=== PATIENT | female | born 1950 | race Asian ===

== ENCOUNTER 2018-01-22 17:58 | Emergency (ER) | payer MEDICARE ==
[~2018-01-22] VITALS: Ht 160 cm; Wt 76.7 kg
[~2018-01-22 17:58] MED LIST: ALPR.5; ALPR.5 PO; ALPR1; AMOX250 PO; LISI20 PO; LISI5 PO; OLME40 PO; OXYACE5T PO; OXYC5 PO; POTCHL10ER; POTCHL10ER PO; TRAM50
[2018-01-22 19:21] LABS: BASOPHILS ABSOLUTE AUTO 0.02 K/mm3 (0.00-0.23); BASOPHILS PERCENT AUTO 0 % (0-2); EOSINOPHILS ABSOLUTE AUTO 0.03 K/mm3 (0.00-0.68); EOSINOPHILS PERCENT AUTO 0 % (0-6); Hematocrit 38.7 % (33.0-51.0); Hemoglobin 13.6 g/dL (11.5-16.0); IMMATURE GRAN ABSOLUTE AUTO 0.02 K/mm3 (0.00-0.10); IMMATURE GRAN PERCENT AUTO 0 % (0-1); LYMPHOCYTES ABSOLUTE AUTO 1.69 K/mm3 (0.84-5.20); LYMPHOCYTES PERCENT AUTO 22 % (21-46); MONOCYTES ABSOLUTE AUTO 0.78 K/mm3 (0.16-1.47); MONOCYTES PERCENT AUTO 10 % (4-13); Mean Corpuscular HGB 35.1 pg (26.0-34.0); Mean Corpuscular HGB Conc 35.1 g/dL (31.5-36.5); Mean Corpuscular Volume 100 fL (80-100); Mean Platelet Volume 11.5 fL (9.1-12.4); NEUTROPHILS ABSOLUTE AUTO 5.09 K/mm3 (1.96-9.15); NEUTROPHILS PERCENT AUTO 67 % (41-73); Platelet Count 97 K/mm3 (150-400); RDW Standard Deviation 43.7 fL (35.1-46.3); Red Blood Cell Count 3.87 M/mm3 (3.80-5.20); White Blood Cell Count 7.63 K/mm3 (4.00-11.30)
[2018-01-22 19:24] LABS: Alanine Aminotransfer (ALT/SGP 402 U/L (12-78); Albumin, Blood 2.6 g/dL (3.4-5.0); Albumin/Globulin Ratio 0.5 (0.8-1.8); Alk Phos 107 U/L (50-136); Anion Gap 9 mmol/L (6-16); Aspartate Aminotrans (AST/SGOT 323 U/L (12-37); Bilirubin, Total 1.9 mg/dL (0.1-1.0); Blood Urea Nitrogen 12 mg/dL (8-24); Bun/Creatinine Ratio 24.3 (12.0-20.0); CO2, Blood 23 mmol/L (21-32); Chloride, Blood 103 mmol/L (98-108); Creatinine, Blood 0.49 mg/dL (0.40-1.00); Globulin, Blood 4.8 g/dL (2.2-4.0); Glomerular Filtration Rate >60 (60-); Glucose, Blood 158 mg/dL (70-99); Potassium, Blood 3.6 mmol/L (3.5-5.5); Sodium, Blood 135 mmol/L (136-145); Total Protein, Blood 7.4 g/dL (6.4-8.2); Troponin I <0.015 ng/mL (0.000-0.040)
== END 2018-01-22 20:33 | disposition home or self-care (01) ==
LOC: ER 17:58
PROVIDERS: Emergency Medicine
DX: R07.89 Other chest pain (principal); F41.9 Anxiety disorder, unspecified; R79.89 Other specified abnormal findings of blood chemistry; F17.210 Nicotine dependence, cigarettes, uncomplicated; Z88.5 Allergy status to narcotic agent; Z88.6 Allergy status to analgesic agent; Z88.8 Allergy status to other drugs, medicaments and biological substances; Z79.899 Other long term (current) drug therapy; Z86.19 Personal history of other infectious and parasitic diseases
CPT/HCPCS: 71046; 80053; 84484; 85025; 93005; 93010; 99283

== ENCOUNTER 2018-04-20 22:33 | Emergency (ER) | payer MEDICARE ==
[~2018-04-20] VITALS: Ht 157.5 cm; Wt 77.1 kg
[2018-04-21] MEDS ORDERED: Hydrocodone-Ap1 EA20 PO (02:11)
[2018-04-21] MEDS ORDERED: Roxicodone5 MG PO (02:46)
== END 2018-04-21 03:07 | disposition home or self-care (01) ==
LOC: ER 22:33
DX: M25.462 Effusion, left knee (principal); F17.210 Nicotine dependence, cigarettes, uncomplicated
CPT/HCPCS: 73564; 99283

== ENCOUNTER 2018-06-29 08:23 | Emergency (ER) | payer MEDICARE ==
[~2018-06-29] VITALS: Ht 162.6 cm; Wt 77.1 kg
[~2018-06-29 08:23] MED LIST changes: +Hydrocodone-Ap1 EA20 PO; +Roxicodone5 MG PO
[2018-06-29 09:00] LABS: BASOPHILS ABSOLUTE AUTO 0.01 K/mm3 (0.00-0.23); BASOPHILS PERCENT AUTO 0 % (0-2); EOSINOPHILS ABSOLUTE AUTO 0.04 K/mm3 (0.00-0.68); EOSINOPHILS PERCENT AUTO 0 % (0-6); Hematocrit 40.6 % (33.0-51.0); IMMATURE GRAN ABSOLUTE AUTO 0.04 K/mm3 (0.00-0.10); IMMATURE GRAN PERCENT AUTO 0 % (0-1); LYMPHOCYTES ABSOLUTE AUTO 3.15 K/mm3 (0.84-5.20); LYMPHOCYTES PERCENT AUTO 33 % (21-46); MONOCYTES ABSOLUTE AUTO 0.55 K/mm3 (0.16-1.47); MONOCYTES PERCENT AUTO 6 % (4-13); Mean Corpuscular HGB Conc 34.5 g/dL (31.5-36.5); Mean Corpuscular Volume 102 fL (80-100); Mean Platelet Volume 12.9 fL (9.1-12.4); NEUTROPHILS ABSOLUTE AUTO 5.63 K/mm3 (1.96-9.15); NEUTROPHILS PERCENT AUTO 60 % (41-73); Platelet Count 123 K/mm3 (150-400); RDW Coefficient Variation 12.9 % (11.7-14.2); RDW Standard Deviation 47.9 fL (35.1-46.3); White Blood Cell Count 9.42 K/mm3 (4.00-11.30)
[2018-06-29 09:23] LABS: Alanine Aminotransfer (ALT/SGP 75 U/L (12-78); Albumin, Blood 2.7 g/dL (3.4-5.0); Albumin/Globulin Ratio 0.6 (0.8-1.8); Alk Phos 113 U/L (50-136); Anion Gap 11 mmol/L (6-16); Aspartate Aminotrans (AST/SGOT 64 U/L (12-37); Bilirubin, Total 1.5 mg/dL (0.1-1.0); Blood Urea Nitrogen 19 mg/dL (8-24); Bun/Creatinine Ratio 25.6 (12.0-20.0); CO2, Blood 22 mmol/L (21-32); Calcium, Blood 8.2 mg/dL (8.5-10.1); Chloride, Blood 108 mmol/L (98-108); Creatinine, Blood 0.74 mg/dL (0.40-1.00); Globulin, Blood 4.6 g/dL (2.2-4.0); Glomerular Filtration Rate >60 (60-); Glucose, Blood 129 mg/dL (70-99); Potassium, Blood 3.4 mmol/L (3.5-5.5); Sodium, Blood 141 mmol/L (136-145); Total Protein, Blood 7.3 g/dL (6.4-8.2); Troponin I <0.015 ng/mL (0.000-0.040)
== END 2018-06-29 12:09 | disposition home or self-care (01) ==
LOC: ER 08:23
PROVIDERS: Emergency Medicine
DX: R07.9 Chest pain, unspecified (principal); R61 Generalized hyperhidrosis; F17.210 Nicotine dependence, cigarettes, uncomplicated; Z88.5 Allergy status to narcotic agent; Z88.6 Allergy status to analgesic agent; Z88.8 Allergy status to other drugs, medicaments and biological substances; Z79.899 Other long term (current) drug therapy
CPT/HCPCS: 36415; 70450; 71045; 80053; 84484; 85025; 93005; 93010; 99285-25

== ENCOUNTER 2019-11-13 05:48 | Emergency (ER) | payer MEDICARE ==
[~2019-11-13] VITALS: Ht 160 cm; Wt 77.1 kg
== END 2019-11-13 06:36 | disposition home or self-care (01) ==
LOC: ER 05:48
DX: G47.00 Insomnia, unspecified (principal); F17.210 Nicotine dependence, cigarettes, uncomplicated; Z88.6 Allergy status to analgesic agent; Z88.5 Allergy status to narcotic agent; Z88.8 Allergy status to other drugs, medicaments and biological substances; Z79.899 Other long term (current) drug therapy
CPT/HCPCS: 99283

== ENCOUNTER 2019-11-22 22:00 | Emergency (ER) | payer MEDICARE ==
[~2019-11-22] VITALS: Ht 160 cm; Wt 77.1 kg
[2019-11-22] MEDS ORDERED: Zithromax250 MG PO (23:40)
== END 2019-11-22 23:46 | disposition home or self-care (01) ==
LOC: ER 22:00
DX: J18.9 Pneumonia, unspecified organism (principal); F17.210 Nicotine dependence, cigarettes, uncomplicated; Z88.6 Allergy status to analgesic agent; Z88.5 Allergy status to narcotic agent; Z88.8 Allergy status to other drugs, medicaments and biological substances; Z79.899 Other long term (current) drug therapy
CPT/HCPCS: 71046; 99283-25

== ENCOUNTER 2020-01-11 01:51 | Emergency (ER) | payer MEDICARE ==
[~2020-01-11] VITALS: Ht 160 cm; Wt 75.8 kg
[~2020-01-11 01:51] MED LIST changes: +Zithromax250 MG PO
[2020-01-11] MEDS ORDERED: EPCLUSA 400 MG1 EACH PO (02:22)
== END 2020-01-11 02:48 | disposition home or self-care (01) ==
LOC: ER 01:51
DX: G47.00 Insomnia, unspecified (principal); F17.210 Nicotine dependence, cigarettes, uncomplicated; Z88.8 Allergy status to other drugs, medicaments and biological substances; Z88.6 Allergy status to analgesic agent; Z88.5 Allergy status to narcotic agent; Z79.899 Other long term (current) drug therapy
CPT/HCPCS: 99283

== ENCOUNTER 2021-07-24 19:06 | Inpatient (IN) | payer MEDICARE ==
[~2021-07-24] VITALS: Ht 160 cm; Wt 68.0 kg
[~2021-07-24 19:06] MED LIST changes: +ATHLETE'S FOO35.4 GM; +CLOBET30L TOP; +EPCLUSA 400 MG1 EACH PO; +LISINOPRIL-HCT1 EAC1 PO; +Norco 10-325 T1 EACH PO; +POTCHL20ER PO; +QUETIAPINE FUMA50 M2 PO
[2021-07-24 20:15] LABS: Source, Urine Clean Catch
[2021-07-24 20:17] LABS: Blood, Urine 1+ (Neg); Glucose Qualitative, Urine Neg (Neg); Ketones, Urine Neg (Neg); Leukocyte Esterase, Urine 1+ (Neg); Nitrite, Urine Neg (Neg); Protein, Urine 2+ (Neg); Specific Gravity, Urine 1.015 (1.003-1.022); Urobilinogen, Urine 3+ (Normal); pH, Urine 6.5 (5.0-8.0)
[2021-07-24 20:25] LABS: Appearance, Urine Clear (Clear); Bilirubin, Urine 1+ (Neg); Color, Urine Yellow (P-Yellow)
[2021-07-24 20:27] LABS: Bacteria Few /hpf; Red Blood Cells, Urine 0-2 /hpf (0-2); Squamous Epithelial Cells Few /hpf (Few); White Blood Cells, Urine 0-2 /hpf (0-5)
[2021-07-24 20:44] LABS: BASOPHILS ABSOLUTE AUTO 0.01 K/mm3 (0.00-0.23); BASOPHILS PERCENT AUTO 0 % (0-2); EOSINOPHILS PERCENT AUTO 0 % (0-6); Hematocrit 37.6 % (33.0-51.0); Hemoglobin 13.2 g/dL (11.5-16.0); IMMATURE GRAN ABSOLUTE AUTO 0.01 K/mm3 (0.00-0.10); IMMATURE GRAN PERCENT AUTO 0 % (0-1); LYMPHOCYTES ABSOLUTE AUTO 1.17 K/mm3 (0.84-5.20); LYMPHOCYTES PERCENT AUTO 28 % (21-46); MONOCYTES ABSOLUTE AUTO 0.18 K/mm3 (0.16-1.47); MONOCYTES PERCENT AUTO 4 % (4-13); Mean Corpuscular HGB 33.2 pg (26.0-34.0); Mean Corpuscular HGB Conc 35.1 g/dL (31.5-36.5); Mean Corpuscular Volume 95 fL (80-100); NEUTROPHILS ABSOLUTE AUTO 2.76 K/mm3 (1.96-9.15); NEUTROPHILS PERCENT AUTO 67 % (41-73); Platelet Count 59 K/mm3 (150-400); RDW Coefficient Variation 12.3 % (11.7-14.2); RDW Standard Deviation 42.8 fL (35.1-46.3); Red Blood Cell Count 3.98 M/mm3 (3.80-5.20); White Blood Cell Count 4.13 K/mm3 (4.00-11.30)
[2021-07-24 20:45] LABS: Mean Platelet Volume 13.1 fL (9.1-12.4)
[2021-07-24 20:57] LABS: Alanine Aminotransfer (ALT/SGP 38 U/L (12-78); Albumin, Blood 3.3 g/dL (3.4-5.0); Albumin/Globulin Ratio 0.8 (0.8-1.8); Alk Phos 101 U/L (50-136); Anion Gap 11 mmol/L (6-16); Aspartate Aminotrans (AST/SGOT 48 U/L (12-37); Bilirubin, Total 2.1 mg/dL (0.1-1.0); Blood Urea Nitrogen 20 mg/dL (8-24); Bun/Creatinine Ratio 31.4 (12.0-20.0); CO2, Blood 19 mmol/L (21-32); Calcium, Blood 9.1 mg/dL (8.5-10.1); Chloride, Blood 111 mmol/L (98-108); Creatinine, Blood 0.64 mg/dL (0.40-1.00); Ethanol (Alcohol), Blood, Med <3 mg/dL; Globulin, Blood 4.2 g/dL (2.2-4.0); Glomerular Filtration Rate >60 (60-); Glucose, Blood 127 mg/dL (70-99); Potassium, Blood 3.9 mmol/L (3.5-5.5); Sodium, Blood 141 mmol/L (136-145); Total Protein, Blood 7.5 g/dL (6.4-8.2)
[2021-07-24] MEDS ORDERED: TRAZ50 PO (21:35)
[2021-07-24] MEDS ORDERED: SEROQUEL50 MG PO ×2 (21:36)
[2021-07-24] MEDS ORDERED: HYDROCODONE-AC1 EAC7 PO (21:36)
[2021-07-24 22:04] LABS: U Amphetamine Screen Not Detected; U Barbituate Screen Not Detected; U Benzodiazapine Screen Not Detected; U Buprenorphine Screen Not Detected; U Cannabinoids Screen Not Detected; U Cocaine Screen Not Detected; U Methadone Screen Not Detected; U Methamphetamine Screen Not Detected; U Opiates Screen DETECTED; U Oxycodone Screen DETECTED; U Phencyclidine Screen Not Detected; U Propoxyphene Screen Not Detected
[2021-07-24 23:32] LABS: International Normalized Ratio 1.12
[2021-07-24 23:53] LABS: SARS-Cov-2 (COVID-19) PCR, MMC NEGATIVE (NEGATIVE)
[2021-07-25] MEDS ORDERED: Nicoderm Cq1 EACH TOP (01:29)
[2021-07-25 05:39] LABS: BASOPHILS ABSOLUTE AUTO 0.02 K/mm3 (0.00-0.23); BASOPHILS PERCENT AUTO 0 % (0-2); EOSINOPHILS PERCENT AUTO 0 % (0-6); Hematocrit 36.6 % (33.0-51.0); Hemoglobin 13.1 g/dL (11.5-16.0); IMMATURE GRAN ABSOLUTE AUTO 0.02 K/mm3 (0.00-0.10); IMMATURE GRAN PERCENT AUTO 0 % (0-1); LYMPHOCYTES ABSOLUTE AUTO 1.53 K/mm3 (0.84-5.20); LYMPHOCYTES PERCENT AUTO 23 % (21-46); MONOCYTES ABSOLUTE AUTO 0.55 K/mm3 (0.16-1.47); MONOCYTES PERCENT AUTO 8 % (4-13); Mean Corpuscular HGB 33.3 pg (26.0-34.0); Mean Corpuscular HGB Conc 35.8 g/dL (31.5-36.5); Mean Corpuscular Volume 93 fL (80-100); NEUTROPHILS ABSOLUTE AUTO 4.64 K/mm3 (1.96-9.15); NEUTROPHILS PERCENT AUTO 69 % (41-73); Platelet Count 67 K/mm3 (150-400); RDW Coefficient Variation 12.1 % (11.7-14.2); RDW Standard Deviation 41.7 fL (35.1-46.3); Red Blood Cell Count 3.93 M/mm3 (3.80-5.20); White Blood Cell Count 6.76 K/mm3 (4.00-11.30)
[2021-07-25 05:51] LABS: Alanine Aminotransfer (ALT/SGP 35 U/L (12-78); Albumin, Blood 3.4 g/dL (3.4-5.0); Albumin/Globulin Ratio 0.8 (0.8-1.8); Alk Phos 106 U/L (50-136); Anion Gap 11 mmol/L (6-16); Aspartate Aminotrans (AST/SGOT 49 U/L (12-37); Bilirubin, Total 2.2 mg/dL (0.1-1.0); Blood Urea Nitrogen 26 mg/dL (8-24); Bun/Creatinine Ratio 31.4 (12.0-20.0); CO2, Blood 20 mmol/L (21-32); Calcium, Blood 8.5 mg/dL (8.5-10.1); Chloride, Blood 112 mmol/L (98-108); Creatinine, Blood 0.83 mg/dL (0.40-1.00); Glomerular Filtration Rate >60 (60-); Glucose, Blood 115 mg/dL (70-99); Potassium, Blood 3.5 mmol/L (3.5-5.5); Sodium, Blood 143 mmol/L (136-145); Total Protein, Blood 7.4 g/dL (6.4-8.2)
[2021-07-25 06:05] LABS: Mean Platelet Volume 13.1 fL (9.1-12.4)
[2021-07-26 06:25] LABS: BASOPHILS ABSOLUTE AUTO 0.03 K/mm3 (0.00-0.23); BASOPHILS PERCENT AUTO 1 % (0-2); EOSINOPHILS ABSOLUTE AUTO 0.03 K/mm3 (0.00-0.68); EOSINOPHILS PERCENT AUTO 1 % (0-6); Hemoglobin 12.6 g/dL (11.5-16.0); IMMATURE GRAN ABSOLUTE AUTO 0.01 K/mm3 (0.00-0.10); IMMATURE GRAN PERCENT AUTO 0 % (0-1); LYMPHOCYTES ABSOLUTE AUTO 1.79 K/mm3 (0.84-5.20); LYMPHOCYTES PERCENT AUTO 28 % (21-46); MONOCYTES ABSOLUTE AUTO 0.47 K/mm3 (0.16-1.47); MONOCYTES PERCENT AUTO 7 % (4-13); Mean Corpuscular HGB 33.1 pg (26.0-34.0); Mean Corpuscular HGB Conc 34.1 g/dL (31.5-36.5); Mean Corpuscular Volume 97 fL (80-100); Mean Platelet Volume 12.8 fL (9.1-12.4); NEUTROPHILS ABSOLUTE AUTO 4.04 K/mm3 (1.96-9.15); NEUTROPHILS PERCENT AUTO 63 % (41-73); RDW Coefficient Variation 12.3 % (11.7-14.2); RDW Standard Deviation 43.9 fL (35.1-46.3); Red Blood Cell Count 3.81 M/mm3 (3.80-5.20); White Blood Cell Count 6.37 K/mm3 (4.00-11.30)
[2021-07-26 06:31] LABS: Platelet Count 69 K/mm3 (150-400)
[2021-07-26 06:37] LABS: International Normalized Ratio 1.14; Prothrombin Time Results 12.2 Sec (9.7-11.5)
[2021-07-26 07:03] LABS: Alanine Aminotransfer (ALT/SGP 42 U/L (12-78); Albumin/Globulin Ratio 0.8 (0.8-1.8); Alk Phos 89 U/L (50-136); Anion Gap 9 mmol/L (6-16); Aspartate Aminotrans (AST/SGOT 86 U/L (12-37); Bilirubin, Total 1.9 mg/dL (0.1-1.0); Blood Urea Nitrogen 31 mg/dL (8-24); Bun/Creatinine Ratio 43.9 (12.0-20.0); CO2, Blood 23 mmol/L (21-32); Calcium, Blood 8.4 mg/dL (8.5-10.1); Chloride, Blood 111 mmol/L (98-108); Creatinine, Blood 0.71 mg/dL (0.40-1.00); Globulin, Blood 3.8 g/dL (2.2-4.0); Glomerular Filtration Rate >60 (60-); Glucose, Blood 118 mg/dL (70-99); Potassium, Blood 3.3 mmol/L (3.5-5.5); Sodium, Blood 143 mmol/L (136-145); Total Protein, Blood 6.8 g/dL (6.4-8.2)
[2021-07-26] MEDS ORDERED: LACT10SY PO (12:35)
[2021-07-26] MEDS ORDERED: PROP10 PO (12:35)
== END 2021-07-26 14:06 | disposition home or self-care (01) | DRG 441 ==
LOC: ER 19:06 → MEDS 19:07 → ER 23:20 → MEDS 23:20
PROVIDERS: Internal Medicine Gastroenterology; Physician Assistant; ADMIT Internal Medicine
DX: K72.90 Hepatic failure, unspecified without coma (principal); G92 Toxic encephalopathy; I67.4 Hypertensive encephalopathy; E87.2 Acidosis; I42.9 Cardiomyopathy, unspecified; E72.20 Disorder of urea cycle metabolism, unspecified; K76.6 Portal hypertension; K74.60 Unspecified cirrhosis of liver; Z20.822 Contact with and (suspected) exposure to COVID-19; G89.4 Chronic pain syndrome; G25.81 Restless legs syndrome; I10 Essential (primary) hypertension; Z79.899 Other long term (current) drug therapy; Z88.5 Allergy status to narcotic agent; Z88.6 Allergy status to analgesic agent; Z88.8 Allergy status to other drugs, medicaments and biological substances; F17.210 Nicotine dependence, cigarettes, uncomplicated; I86.4 Gastric varices
CPT/HCPCS: 36415; 70450; 71046; 80053; 81001; 82140; 83605; 83690; 83735; 83880; 85025; 85610; 87040; 87086; 93005; 93010; 93306; 96372; 96374; 96375; 99285-25; A9270; G0378; G0480; J0360; J1650; J1885; J2405; J7030; U0004

== ENCOUNTER 2022-02-14 22:21 | Emergency (ER) | payer MEDICARE ==
[~2022-02-14] VITALS: Ht 162.6 cm; Wt 81.7 kg
[~2022-02-14 22:21] MED LIST changes: +HYDROCODONE-AC1 EAC7 PO; +LACT10SY PO; +Nicoderm Cq1 EACH TOP; +PROP10 PO; +SEROQUEL50 MG PO; +TRAZ50 PO
[2022-02-14 23:36] LABS: BASOPHILS ABSOLUTE AUTO 0.02 K/mm3 (0.00-0.23); BASOPHILS PERCENT AUTO 0 % (0-2); EOSINOPHILS ABSOLUTE AUTO 0.08 K/mm3 (0.00-0.68); EOSINOPHILS PERCENT AUTO 1 % (0-6); Hematocrit 39.5 % (33.0-51.0); Hemoglobin 13.5 g/dL (11.5-16.0); IMMATURE GRAN ABSOLUTE AUTO 0.02 K/mm3 (0.00-0.10); IMMATURE GRAN PERCENT AUTO 0 % (0-1); LYMPHOCYTES ABSOLUTE AUTO 1.52 K/mm3 (0.84-5.20); LYMPHOCYTES PERCENT AUTO 27 % (21-46); MONOCYTES ABSOLUTE AUTO 0.35 K/mm3 (0.16-1.47); MONOCYTES PERCENT AUTO 6 % (4-13); Mean Corpuscular HGB 33.2 pg (26.0-34.0); Mean Corpuscular HGB Conc 34.2 g/dL (31.5-36.5); Mean Corpuscular Volume 97 fL (80-100); Mean Platelet Volume 12.3 fL (9.1-12.4); NEUTROPHILS ABSOLUTE AUTO 3.71 K/mm3 (1.96-9.15); NEUTROPHILS PERCENT AUTO 65 % (41-73); Platelet Count 71 K/mm3 (150-400); RDW Standard Deviation 46.4 fL (35.1-46.3); Red Blood Cell Count 4.07 M/mm3 (3.80-5.20)
[2022-02-14 23:41] LABS: Source, Urine Clean Catch
[2022-02-14 23:44] LABS: Bilirubin, Urine Neg (Neg); Blood, Urine Neg (Neg); Glucose Qualitative, Urine Neg (Neg); Ketones, Urine Neg (Neg); Leukocyte Esterase, Urine Neg (Neg); Nitrite, Urine Neg (Neg); Protein, Urine 1+ (Neg); Urobilinogen, Urine 2+ (Normal)
[2022-02-14 23:55] LABS: Alanine Aminotransfer (ALT/SGP 23 U/L (12-78); Albumin, Blood 3.3 g/dL (3.4-5.0); Albumin/Globulin Ratio 0.8 (0.8-1.8); Alk Phos 96 U/L (50-136); Anion Gap 7 mmol/L (6-16); Aspartate Aminotrans (AST/SGOT 30 U/L (12-37); Bilirubin, Total 1.4 mg/dL (0.1-1.0); Blood Urea Nitrogen 13 mg/dL (8-24); Bun/Creatinine Ratio 21.2 (12.0-20.0); CO2, Blood 23 mmol/L (21-32); Calcium, Blood 9.3 mg/dL (8.5-10.1); Chloride, Blood 113 mmol/L (98-108); Creatinine, Blood 0.61 mg/dL (0.40-1.00); Glomerular Filtration Rate >60 (60-); Glucose, Blood 135 mg/dL (70-99); Potassium, Blood 3.3 mmol/L (3.5-5.5); Sodium, Blood 143 mmol/L (136-145); Total Protein, Blood 7.3 g/dL (6.4-8.2)
[2022-02-14 23:55] LABS: Appearance, Urine Clear (Clear); Color, Urine Yellow (P-Yellow)
[2022-02-15] MEDS ORDERED: QUETIAPINE FUMA PO (03:47)
[2022-02-15] MEDS ORDERED: HYDROCODONE-AC1 EAC7 PO (03:47)
[2022-02-15] MEDS ORDERED: CONSTULOSE10 GM/155 PO (03:48)
== END 2022-02-15 04:52 | disposition home or self-care (01) ==
LOC: ER 22:21
PROVIDERS: Emergency Medicine
DX: K72.90 Hepatic failure, unspecified without coma (principal); Z88.8 Allergy status to other drugs, medicaments and biological substances; Z88.6 Allergy status to analgesic agent; Z88.5 Allergy status to narcotic agent; Z88.1 Allergy status to other antibiotic agents; Z79.899 Other long term (current) drug therapy; I10 Essential (primary) hypertension
CPT/HCPCS: 36415; 80053; 82140; 85025; 93005; 93010; 99285-25; A9270

== ENCOUNTER 2022-06-04 10:36 | Day surgery (SDC) | payer MEDICARE ==
[~2022-06-04] VITALS: Ht 160 cm; Wt 78.9 kg
[~2022-06-04 10:36] MED LIST changes: +CONSTULOSE10 GM/155 PO; +QUETIAPINE FUMA PO
[2022-06-04] MEDS ORDERED: TRAZ50 (10:50)
[2022-06-04] MEDS ORDERED: Micro-K8 MEQ (10:51)
== END 2022-06-04 12:52 | disposition home or self-care (01) ==
LOC: ORSCSDS 10:36
PROVIDERS: Student in an Organized Health Care Education/Training Program
PROC: 0DJ08ZZ Inspection of Upper Intestinal Tract, Via Natural or Artificial Opening Endoscopic (ICD-10-PCS; principal; 2022-06-04 12:00)
DX: K70.30 Alcoholic cirrhosis of liver without ascites (principal); I86.4 Gastric varices; I10 Essential (primary) hypertension; F17.210 Nicotine dependence, cigarettes, uncomplicated; E66.9 Obesity, unspecified; Z68.30 Body mass index [BMI] 30.0-30.9, adult; Z79.899 Other long term (current) drug therapy
CPT/HCPCS: J2704

== ENCOUNTER 2023-08-08 21:44 | Emergency (ER) | payer MEDICARE ==
[~2023-08-08] VITALS: Ht 160 cm; Wt 81.7 kg
[~2023-08-08 21:44] MED LIST changes: +CEFD300 PO; +K-Dur10 MEQ PO; +Lasix20 MG PO; +Micro-K8 MEQ; +TRAZ50
[2023-08-08 22:01] VITALS: BP 211/84
== END 2023-08-08 23:14 | disposition home or self-care (01) ==
LOC: ER 21:44
DX: S13.4XXA Sprain of ligaments of cervical spine, initial encounter (principal); S40.021A Contusion of right upper arm, initial encounter; S50.312A Abrasion of left elbow, initial encounter; Y04.8XXA Assault by other bodily force, initial encounter; Z88.8 Allergy status to other drugs, medicaments and biological substances; Z88.6 Allergy status to analgesic agent; Z88.5 Allergy status to narcotic agent; Z79.899 Other long term (current) drug therapy; I10 Essential (primary) hypertension
CPT/HCPCS: 96372; 99284; A9270; J1885

== ENCOUNTER 2023-09-22 10:57 | Emergency (ER) | payer MEDICARE ==
[~2023-09-22] VITALS: Ht 160 cm; Wt 81.7 kg
[~2023-09-22 10:57] MED LIST changes: -Inderal40 MG PO; -Potassium Chlo20 ME1 PO
[2023-09-22 13:21] LABS: Source, Urine Clean Catch
[2023-09-22 13:36] LABS: Appearance, Urine Clear (Clear); Blood, Urine 1+ (Neg); Color, Urine Amber (P-Yellow); Glucose Qualitative, Urine Neg (Neg); Ketones, Urine Neg (Neg); Leukocyte Esterase, Urine 1+ (Neg); Nitrite, Urine Pos (Neg); Protein, Urine 2+ (Neg); Urobilinogen, Urine 4+ (Normal)
[2023-09-22 13:52] LABS: Bilirubin, Urine 2+ (Neg)
[2023-09-22 13:54] LABS: Bacteria Mod /hpf; Red Blood Cells, Urine 0-2 /hpf (0-2); Squamous Epithelial Cells Few /hpf (Few)
[2023-09-22] MEDS ORDERED: CONSTULOSE10 GM/155 PO (14:12)
[2023-09-22] MEDS ORDERED: HYDROCODONE-AC1 EAC7 PO (14:13)
[2023-09-22] MEDS ORDERED: Inderal40 MG PO (14:13)
[2023-09-22] MEDS ORDERED: Potassium Chlo20 ME1 PO (21:07)
[2023-09-22 21:37] VITALS: BP 159/101
== END 2023-09-22 21:39 | disposition short-term general hospital (02) ==
LOC: ER 10:57
PROVIDERS: Emergency Medicine
DX: K80.51 Calculus of bile duct without cholangitis or cholecystitis with obstruction (principal); Z72.0 Tobacco use; Z88.8 Allergy status to other drugs, medicaments and biological substances; Z88.5 Allergy status to narcotic agent; Z88.6 Allergy status to analgesic agent; Z79.899 Other long term (current) drug therapy; R07.9 Chest pain, unspecified; I51.7 Cardiomegaly; J44.9 Chronic obstructive pulmonary disease, unspecified
CPT/HCPCS: 71046; 74019; 74177; 80053; 81001; 83690; 84484; 85025; 85379; 87086; 93005; 93010; 96361; 96365-59; 96375; 99285-25; A9270; J1170; J2405; J2543; J7030; Q9967

== ENCOUNTER → 2023-09-22 | Outpatient (CLI) | payer MEDICARE ==
[~2023-09-22] MED LIST changes: +Inderal40 MG PO; +Potassium Chlo20 ME1 PO
[2023-09-22 09:06] LABS: BASOPHILS ABSOLUTE AUTO 0.02 K/mm3 (0.00-0.23); BASOPHILS PERCENT AUTO 0 % (0-2); EOSINOPHILS ABSOLUTE AUTO 0.02 K/mm3 (0.00-0.68); EOSINOPHILS PERCENT AUTO 0 % (0-6); Hematocrit 40.4 % (33.0-51.0); Hemoglobin 14.4 g/dL (11.5-16.0); IMMATURE GRAN ABSOLUTE AUTO 0.01 K/mm3 (0.00-0.10); IMMATURE GRAN PERCENT AUTO 0 % (0-1); LYMPHOCYTES ABSOLUTE AUTO 1.27 K/mm3 (0.84-5.20); LYMPHOCYTES PERCENT AUTO 20 % (21-46); MONOCYTES ABSOLUTE AUTO 0.42 K/mm3 (0.16-1.47); MONOCYTES PERCENT AUTO 7 % (4-13); Mean Corpuscular HGB 33.7 pg (26.0-34.0); Mean Corpuscular HGB Conc 35.6 g/dL (31.5-36.5); Mean Corpuscular Volume 95 fL (80-100); Mean Platelet Volume 12.8 fL (9.1-12.4); NEUTROPHILS ABSOLUTE AUTO 4.53 K/mm3 (1.96-9.15); NEUTROPHILS PERCENT AUTO 72 % (41-73); Platelet Count 89 K/mm3 (150-400); RDW Coefficient Variation 12.9 % (11.7-14.2); RDW Standard Deviation 44.5 fL (35.1-46.3); Red Blood Cell Count 4.27 M/mm3 (3.80-5.20); White Blood Cell Count 6.27 K/mm3 (4.00-11.30)
[2023-09-22 09:19] LABS: Albumin, Blood 3.1 g/dL (3.4-5.0); Albumin/Globulin Ratio 0.7 (0.8-1.8); Bun/Creatinine Ratio 14.3 (12.0-20.0); Calcium, Blood 9.4 mg/dL (8.5-10.1); Creatinine, Blood 0.84 mg/dL (0.40-1.00); Globulin, Blood 4.4 g/dL (2.2-4.0); Potassium, Blood 3.4 mmol/L (3.5-5.5); Total Protein, Blood 7.5 g/dL (6.4-8.2)
== END | disposition home or self-care (01) ==
LOC: LAB 08:55 → LAB SHORT 08:55
PROVIDERS: Physician Assistant
DX: R07.9 Chest pain, unspecified (principal)
CPT/HCPCS: 71046; 74019; 80053; 83690; 84484; 85025; 85379

== ENCOUNTER 2023-10-29 06:47 | Emergency (ER) | payer MEDICARE ==
[~2023-10-29] VITALS: Ht 160 cm; Wt 81.7 kg
[~2023-10-29 06:47] MED LIST changes: +Inderal40 MG PO; +Potassium Chlo20 ME1 PO
[2023-10-29 07:12] VITALS: BP 165/72
== END 2023-10-29 09:07 | disposition home or self-care (01) ==
LOC: ER 06:47
DX: S90.31XA Contusion of right foot, initial encounter (principal); G89.29 Other chronic pain; I10 Essential (primary) hypertension; Z79.899 Other long term (current) drug therapy; Z88.5 Allergy status to narcotic agent; Z88.6 Allergy status to analgesic agent; Z88.8 Allergy status to other drugs, medicaments and biological substances; W20.8XXA Other cause of strike by thrown, projected or falling object, initial encounter; Y92.009 Unspecified place in unspecified non-institutional (private) residence as the place of occurrence of the external cause; Y93.89 Activity, other specified
CPT/HCPCS: 73630; 96372; 99283-25; J1885

== ENCOUNTER → 2024-01-12 | Outpatient (CLI) | payer MEDICARE ==
[2024-01-12 17:17] LABS: BASOPHILS ABSOLUTE AUTO 0.03 K/mm3 (0.00-0.23); BASOPHILS PERCENT AUTO 1 % (0-2); EOSINOPHILS ABSOLUTE AUTO 0.15 K/mm3 (0.00-0.68); EOSINOPHILS PERCENT AUTO 3 % (0-6); Hematocrit 38.7 % (33.0-51.0); Hemoglobin 13.2 g/dL (11.5-16.0); IMMATURE GRAN ABSOLUTE AUTO 0.01 K/mm3 (0.00-0.10); IMMATURE GRAN PERCENT AUTO 0 % (0-1); LYMPHOCYTES ABSOLUTE AUTO 1.43 K/mm3 (0.84-5.20); LYMPHOCYTES PERCENT AUTO 26 % (21-46); MONOCYTES ABSOLUTE AUTO 0.61 K/mm3 (0.16-1.47); MONOCYTES PERCENT AUTO 11 % (4-13); Mean Corpuscular HGB 32.5 pg (26.0-34.0); Mean Corpuscular HGB Conc 34.1 g/dL (31.5-36.5); Mean Corpuscular Volume 95 fL (80-100); NEUTROPHILS ABSOLUTE AUTO 3.28 K/mm3 (1.96-9.15); NEUTROPHILS PERCENT AUTO 60 % (41-73); Platelet Count 73 K/mm3 (150-400); RDW Coefficient Variation 12.3 % (11.7-14.2); RDW Standard Deviation 42.7 fL (35.1-46.3); Red Blood Cell Count 4.06 M/mm3 (3.80-5.20); White Blood Cell Count 5.51 K/mm3 (4.00-11.30)
[2024-01-12 17:22] LABS: Mean Platelet Volume 13.2 fL (9.1-12.4)
[2024-01-12 17:30] LABS: Albumin, Blood 2.9 g/dL (3.4-5.0); Albumin/Globulin Ratio 0.7 (0.8-1.8); Bilirubin, Total 0.7 mg/dL (0.1-1.0); Bun/Creatinine Ratio 13.3 (12.0-20.0); Calcium, Blood 9.6 mg/dL (8.5-10.1); Creatinine, Blood 1.2 mg/dL (0.40-1.00); Globulin, Blood 4.1 g/dL (2.2-4.0); Potassium, Blood 4.4 mmol/L (3.5-5.5)
== END | disposition home or self-care (01) ==
LOC: LAB SHORT 17:13 → LAB 17:13
PROVIDERS: Physician Assistant Medical
DX: R07.81 Pleurodynia (principal)
CPT/HCPCS: 80053; 85025; 85379

== ENCOUNTER 2025-05-15 17:15 | Inpatient (IN) | payer MEDICARE ==
[~2025-05-15] VITALS: Ht 165.1 cm; Wt 79.4 kg
[2025-05-15 18:32] LABS: Source, Urine Straight Cath
[2025-05-15 18:36] LABS: BASOPHILS ABSOLUTE AUTO 0.03 K/mm3 (0.00-0.23); BASOPHILS PERCENT AUTO 1 % (0-2); EOSINOPHILS ABSOLUTE AUTO 0.01 K/mm3 (0.00-0.68); EOSINOPHILS PERCENT AUTO 0 % (0-6); Hematocrit 35.6 % (33.0-51.0); Hemoglobin 12.3 g/dL (11.5-16.0); IMMATURE GRAN ABSOLUTE AUTO 0.01 K/mm3 (0.00-0.10); IMMATURE GRAN PERCENT AUTO 0 % (0-1); LYMPHOCYTES ABSOLUTE AUTO 1.18 K/mm3 (0.84-5.20); LYMPHOCYTES PERCENT AUTO 26 % (21-46); MONOCYTES PERCENT AUTO 7 % (4-13); Mean Corpuscular HGB 34.1 pg (26.0-34.0); Mean Corpuscular HGB Conc 34.6 g/dL (31.5-36.5); Mean Corpuscular Volume 99 fL (80-100); Mean Platelet Volume 11.9 fL (9.1-12.4); NEUTROPHILS ABSOLUTE AUTO 3.09 K/mm3 (1.96-9.15); NEUTROPHILS PERCENT AUTO 67 % (41-73); Platelet Count 83 K/mm3 (150-400); RDW Coefficient Variation 12.5 % (11.7-14.2); RDW Standard Deviation 45.2 fL (35.1-46.3); Red Blood Cell Count 3.61 M/mm3 (3.80-5.20); White Blood Cell Count 4.62 K/mm3 (4.00-11.30)
[2025-05-15 18:39] LABS: Appearance, Urine Clear (Clear); Bilirubin, Urine Neg (Neg); Blood, Urine 1+ (Neg); Color, Urine Yellow (P-Yellow); Glucose Qualitative, Urine Neg (Neg); Ketones, Urine Neg (Neg); Leukocyte Esterase, Urine Neg (Neg); Nitrite, Urine Neg (Neg); Protein, Urine 1+ (Neg); Urobilinogen, Urine NORM (Normal)
[2025-05-15 18:53] LABS: Amorphous Light (0-Heavy); Bacteria Few /hpf; Squamous Epithelial Cells Few /hpf (Few)
[2025-05-15 18:54] LABS: Hyaline Casts 0-2 /lpf (0-2); Renal Epithelial Rare /hpf (0-Rare)
[2025-05-15 19:13] LABS: Albumin, Blood 3.6 g/dL (3.4-5.0); Albumin/Globulin Ratio 0.9 (0.8-1.8); Bilirubin, Total 1.3 mg/dL (0.1-1.0); Bun/Creatinine Ratio 17.9 (12.0-20.0); Creatinine, Blood 1.17 mg/dL (0.40-1.00); Globulin, Blood 4.1 g/dL (2.2-4.0); Potassium, Blood 3.8 mmol/L (3.5-5.5); Total Protein, Blood 7.7 g/dL (6.4-8.2)
[2025-05-15 19:15] LABS: International Normalized Ratio 1.11; Prothrombin Time Results 12.1 Sec (9.7-11.5)
[2025-05-15] MEDS ORDERED: Lactulose 20 GM/30 ML UDC PO ONE (19:40)
[2025-05-15 22:08] VITALS: BP 152/102
[2025-05-15] MEDS ORDERED: TRAZ50 PO (22:24)
[2025-05-15] MEDS ORDERED: LISI20 PO (22:24)
[2025-05-15] MEDS ORDERED: SPIR50 PO (22:27)
[2025-05-15] MEDS ORDERED: HYDROcodone 10-APAP 325 TAB PO PRN (23:35)
[2025-05-16 03:31] VITALS: BP 144/71
[2025-05-16 05:06] LABS: Hematocrit 33.3 % (33.0-51.0); Hemoglobin 11.4 g/dL (11.5-16.0); Mean Corpuscular HGB 34.2 pg (26.0-34.0); Mean Corpuscular HGB Conc 34.2 g/dL (31.5-36.5); Mean Corpuscular Volume 100 fL (80-100); Mean Platelet Volume 12.6 fL (9.1-12.4); Platelet Count 78 K/mm3 (150-400); RDW Coefficient Variation 12.4 % (11.7-14.2); RDW Standard Deviation 45.6 fL (35.1-46.3); Red Blood Cell Count 3.33 M/mm3 (3.80-5.20); White Blood Cell Count 5.89 K/mm3 (4.00-11.30)
[2025-05-16 05:27] LABS: Albumin, Blood 3.3 g/dL (3.4-5.0); Albumin/Globulin Ratio 0.9 (0.8-1.8); Bilirubin, Total 1.2 mg/dL (0.1-1.0); Bun/Creatinine Ratio 21.2 (12.0-20.0); Calcium, Blood 9.2 mg/dL (8.5-10.1); Creatinine, Blood 1.18 mg/dL (0.40-1.00); Globulin, Blood 3.6 g/dL (2.2-4.0); Magnesium, Blood 1.8 mg/dL (1.6-2.4); Potassium, Blood 3.7 mmol/L (3.5-5.5); Total Protein, Blood 6.9 g/dL (6.4-8.2)
--- NOTE | 2025-05-16 06:15 | NUR ---
Shift Summary Pt admitted to this unit from ED for acute encepholopathy. She rcvd Enulose in the ED and her mentation improved significantly per report. She is still somewhat confused but is directable and understanding. She pulled out her IV because she didn't know what it was, I have not replaced it yet because no IV meds are ordered and there's a risk she will pull it again, I will pass on to day shift. She calls about 1/2 of the time she wants to get up to use the bathroom, bed the bed alarm alerts the other 1/2. Recent hx of falls at home. She had multiple loose BMs last night after taking Enulose in the ED. She is AOx2-3, 1 assist to the BR and somewhat unsteady on her feet.
[2025-05-16 07:55] VITALS: BP 169/69
[2025-05-16] MEDS ORDERED: Lactulose 20 GM/30 ML UDC PO SCH (09:00)
[2025-05-16] MEDS ORDERED: Enoxaparin 40 MG/0.4 ML SYR SC SCH (09:00)
[2025-05-16] MEDS ORDERED: Inderal40 MG PO (10:12)
[2025-05-16] MEDS ORDERED: LACT10SY PO (10:18)
[2025-05-16] MEDS ORDERED: TraZODone HCl 50 MG Tab PO PRN (13:35)
--- NOTE | 2025-05-16 15:20 | NUR ---
P.t is awake in bed and welcomes my visit. Daughter is at bedside and is supportive. Facilitate a life review and listen with interest and empathy. Pt. shared about her , and in the process this bleaching machine operator was able to identify the pt. and her spouse as my former next door neighbors. Rapport is established as matters of family and tristan are shared. Prayed for the Pt. Pt. verbalized gratitude for the spiritual care visit and welcomed this bleaching machine operator to return.
[2025-05-16] MEDS ORDERED: Propranolol HCL 20 MG TAB PO SCH (17:00)
[2025-05-16 18:30] VITALS: BP 138/72
[2025-05-16 19:37] VITALS: BP 165/75
--- NOTE | 2025-05-16 19:44 | NUR ---
SHIFT SUMMARY- PT ALERT AND ORIENTED TO SELF AND FAMILY. PT IS CONFUSED AND FORGETFUL. SHE HAS POOR INSIGHT AND OVERESTIMATES HER ABILITIES. CALL LIGHT IS IN REACH, SOMETIMES SHE CALLS, BED ALARM IS SET FOR SAFETY. PT HAS HAD ALL LACTULOSE DOSES TODAY WITH ONE SMALL STOOL A RESULT. PT IS CURRENTLY IN BED, CALL LIGHT IN REACH, BED ALARM SET. NO S&S OF DISTRESS ON ROOM AIR.
[2025-05-16] MEDS ORDERED: QUEtiapine Fumarate 100 MG Tab PO SCH (21:00)
[2025-05-17 05:11] LABS: Anion Gap 11 mmol/L (3-11); Blood Urea Nitrogen 29 mg/dL (8-24); Bun/Creatinine Ratio 24.6 (12.0-20.0); CO2, Blood 17 mmol/L (21-32); Calcium, Blood 8.8 mg/dL (8.5-10.1); Chloride, Blood 117 mmol/L (98-108); Creatinine, Blood 1.18 mg/dL (0.40-1.00); Glomerular Filtration Rate 48 (60-); Glucose, Blood 102 mg/dL (70-99); Phosphorus, Blood 3.8 mg/dL (2.5-4.9); Potassium, Blood 3.6 mmol/L (3.5-5.5); Sodium, Blood 141 mmol/L (136-145)
[2025-05-17 05:23] VITALS: BP 102/54
--- NOTE | 2025-05-17 06:23 | NUR ---
SHIFT SUMMARY AT START OF SHIFT, PT UP TO BATHROOM. PT ON LACTULOSE AND HAVING LIQUID STOOLS. PT IS IMPULSIVE AND JUMPS OUT OF BED IF CALL LIGHT NOW ANSWERED RIGHT AWAY. PT IS HIGH FALL RISK. BED ALARM ON FOR PT SAFETY. PT HAS BEEN SLEEPING SINCE SHORTLY AFTER 2100 MEDICATION PASS WAKING OCCASSIONALLY FOR BATHROOM NEEDS.
[2025-05-17 07:59] VITALS: BP 114/59
[2025-05-17] MEDS ORDERED: Spironolactone 50 MG Tab PO SCH (09:00)
[2025-05-17] MEDS ORDERED: Spironolactone 25 MG Tab PO SCH (09:40)
[2025-05-17 09:53] VITALS: BP 126/72
[2025-05-17] MEDS ORDERED: Lactulose 20 GM/30 ML UDC PO SCH (14:00)
[2025-05-17 16:18] VITALS: BP 150/67
--- NOTE | 2025-05-17 16:31 | NUR ---
Pt. is awake and sitting on the side of her bed when she welcomes my visit. Pt. is pleasant and is known to this assistant technician from the community.Facilitated an update and considered matters of tristan and belief. Pt. displayed evidence of being joyful and encouraged. Pt. verbalized an expectation that she woudl be discharged tomorrow. Prayed for the Pt. Pt. verbalized gratitude for the spiritual care visit and welcomed this assistant technician to return in the morning.
[2025-05-17 17:48] VITALS: BP 177/88
--- NOTE | 2025-05-17 18:26 | NUR ---
SHIFT SUMMARY- SPOKE TO DR HOYT PT HAS HAD THREE GOOD SIZED STOOLS PER REPORT FROM THE EM PHYSICIAN. SHE HAS BEEN HAVING SMALL LIQUID STOOLS FOR THIS RN. PER DR HOYT THE PT IS TO RECIEVE THIS EVENINGS DOSE OF LACTULOSE AND HOLD THE 2100 DOSE FOR THE LOOSE STOOLS. PT IS UP AND DOWN TO THE BATHROOM FREQUENTLY. SHE IS A FALL RISK SO BED ALARM IS SET. CALL LIGHT IS IN REACH. DAUGHTER IS AT THE BEDSIDE AND SHE STATES THE PT COGNITION THIS EVENING SEEMS TO BE BACK TO HER BASELINE.
[2025-05-17 19:41] VITALS: BP 152/80
[2025-05-18 04:14] VITALS: BP 112/61
[2025-05-18 05:27] LABS: Hematocrit 30.6 % (33.0-51.0); Hemoglobin 10.6 g/dL (11.5-16.0); Mean Corpuscular HGB 33.9 pg (26.0-34.0); Mean Corpuscular HGB Conc 34.6 g/dL (31.5-36.5); Mean Corpuscular Volume 98 fL (80-100); Mean Platelet Volume 12.5 fL (9.1-12.4); Platelet Count 60 K/mm3 (150-400); RDW Coefficient Variation 12.3 % (11.7-14.2); RDW Standard Deviation 44.1 fL (35.1-46.3); Red Blood Cell Count 3.13 M/mm3 (3.80-5.20); White Blood Cell Count 4.12 K/mm3 (4.00-11.30)
[2025-05-18 07:01] LABS: Bun/Creatinine Ratio 24.8 (12.0-20.0); Calcium, Blood 8.8 mg/dL (8.5-10.1); Creatinine, Blood 1.17 mg/dL (0.40-1.00); Potassium, Blood 3.7 mmol/L (3.5-5.5)
[2025-05-18 07:38] VITALS: BP 92/46
[2025-05-18] MEDS ORDERED: Spironolactone 12.5 MG TAB PO SCH (09:00)
[2025-05-18] MEDS ORDERED: Propranolol HCL 20 MG TAB PO SCH (09:00)
[2025-05-18 09:14] VITALS: BP 129/58
--- NOTE | 2025-05-18 12:17 | NUR ---
Pt. is awake and being transitioned into her bed when she welcomed my visit. Pt. sat on the side of the bed for most of the visit. Pt. is pleasant and verbalized an expectation of being discharged home later today. Pt. is unsettled at the time it takes to make discharge happen. Seek to normalize the Pt. experience. Pt. displayed evidene of understanding and agreement. Considered matters of tristan and family. Prayed with Pt. Pt. verbalized gratitude for the spiritual care visit.
[2025-05-18] MEDS ORDERED: PROP10 PO (12:55)
[2025-05-18] MEDS ORDERED: RIFA550T2 PO (12:56)
--- NOTE | 2025-05-18 13:48 | NUR ---
SHIFT/DISCHARGE SUMMARY: PATIENT A/OX3, FORGETFUL, INTERMITTENT CONFUSION AND IMPULSIVE. PATIENT DOES NOT USE CALL LIGHT, GET UP TO BATHROOM WITHOUT CALLING, DESPITE MULTIPLE ATTEMPS OF EDUCATING TO USE CALL LIGHT. PATIENT VERBALIZED UNDERSTANDING, BUT CONINUES TO BE FORGETFUL. PATIENT RECEIVED SCHEDULED MEDS PER EMAR. PATIENT MEDICATED FOR R SHOULDER PAIN PER EMAR c GOOD EFFECT. PATIENT HAS GOOD APPETITE, CONTINENT OF BAB AND AMBULATES TO BATHROOM c SBA/FWW. PATIENT HAS NO IV ACCESS PER ORDER. VITAL SIGNS REVIEWED. PATIENT HAS HAD NO COMPLAINTS OR NEW CONCERNED THIS SHIFT. PATIENT DISCHARGE HOME c [facility]. PATIENT DISCHARGE INSTRUCTIONS PACKET GIVEN TO PATIENT AND GRANDAUGHTER AT BEDSIDE. PATIENT AND GRANDAUGHTER EDUCATED ON ADMITTING DX OF ACUTE ENCEPHALOPATHY, S/S, TX, NEW RX AND TO F/U c PCP. PATIENT AND GRANDAUGHTER VERBALIZED UNDERSTANDING AND NO FURTHER QUESTIONS. RX WAS FAXED TO PATIENT PREFERRED PHARMACY ([facility] ALL PERSONAL BELONGINGS WERE SENT c THE PATIENT. PATIENT LEFT THE ROOM AT 1339, TRANSPORTED VIA W/C BY DEISI SANCHEZ TO PATIENT ENTRANCE.
[2025-05-18] MEDS ORDERED: RifAXIMin 550 MG Tablet PO SCH (21:00)
[2025-05-18] MEDS ORDERED: Lactulose 20 GM/30 ML UDC PO SCH (21:00)
== END 2025-05-18 13:39 | disposition home health service (06) | DRG 442 ==
LOC: ER 17:15 → MEDS 21:10
PROVIDERS: Emergency Medicine; Internal Medicine; ADMIT Internal Medicine
DX: K76.82 Hepatic encephalopathy (principal); K76.6 Portal hypertension; D69.59 Other secondary thrombocytopenia; K70.30 Alcoholic cirrhosis of liver without ascites; B19.20 Unspecified viral hepatitis C without hepatic coma; I86.4 Gastric varices; F17.210 Nicotine dependence, cigarettes, uncomplicated; F11.90 Opioid use, unspecified, uncomplicated; N18.30 Chronic kidney disease, stage 3 unspecified; I12.9 Hypertensive chronic kidney disease with stage 1 through stage 4 chronic kidney disease, or unspecified chronic kidney disease; G89.29 Other chronic pain; G47.00 Insomnia, unspecified; Z90.49 Acquired absence of other specified parts of digestive tract; Z90.710 Acquired absence of both cervix and uterus; Z88.5 Allergy status to narcotic agent; Z88.6 Allergy status to analgesic agent; Z88.8 Allergy status to other drugs, medicaments and biological substances
CPT/HCPCS: 36415; 80048; 80053; 80069; 81001; 82140; 83735; 85025; 85027; 85610; 94762; 97116; 97129; 97162; 97165; 97530; 99285-25; A9270; J1650

== ENCOUNTER 2025-10-06 23:48 | Emergency (ER) | payer MEDICARE | END 2025-10-07 01:45 | disposition home or self-care (01) | LOC: ER 23:48 | DX: S83.91XA Sprain of unspecified site of right knee, initial encounter (principal); I10 Essential (primary) hypertension; W19.XXXA Unspecified fall, initial encounter; Z87.39 Personal history of other diseases of the musculoskeletal system and connective tissue; Z87.891 Personal history of nicotine dependence; Z79.899 Other long term (current) drug therapy; Z88.5 Allergy status to narcotic agent; Z88.1 Allergy status to other antibiotic agents; Z88.6 Allergy status to analgesic agent; Z88.8 Allergy status to other drugs, medicaments and biological substances ==

== ENCOUNTER → 2025-10-29 | Outpatient (CLI) | payer MEDICARE ==
[~2025-10-29] MED LIST changes: +RIFA550T2 PO; +SPIR50 PO; +Voltaren100 GM TOP
[2025-10-29 16:07] LABS: BASOPHILS ABSOLUTE AUTO 0.02 K/mm3 (0.00-0.23); BASOPHILS PERCENT AUTO 1 % (0-2); EOSINOPHILS ABSOLUTE AUTO 0.06 K/mm3 (0.00-0.68); EOSINOPHILS PERCENT AUTO 2 % (0-6); Hematocrit 35.0 % (33.0-51.0); Hemoglobin 11.9 g/dL (11.5-16.0); IMMATURE GRAN ABSOLUTE AUTO 0.01 K/mm3 (0.00-0.10); IMMATURE GRAN PERCENT AUTO 0 % (0-1); LYMPHOCYTES ABSOLUTE AUTO 1.16 K/mm3 (0.84-5.20); LYMPHOCYTES PERCENT AUTO 31 % (21-46); MONOCYTES ABSOLUTE AUTO 0.42 K/mm3 (0.16-1.47); MONOCYTES PERCENT AUTO 11 % (4-13); Mean Corpuscular HGB Conc 34.0 g/dL (31.5-36.5); Mean Corpuscular Volume 98 fL (80-100); NEUTROPHILS ABSOLUTE AUTO 2.11 K/mm3 (1.96-9.15); NEUTROPHILS PERCENT AUTO 56 % (41-73); NRBC ABSOLUTE 0.00 K/mm3 (0.00-0.02); NRBC Auto 0.0 /100 WBC (0.0-0.2); Platelet Count 73 K/mm3 (150-400); RDW Coefficient Variation 12.8 % (11.7-14.2); RDW Standard Deviation 46.0 fL (35.1-46.3)
[2025-10-29 16:19] LABS: Alanine Aminotransfer (ALT/SGP 27 U/L (12-78); Albumin, Blood 3.5 g/dL (3.4-5.0); Albumin/Globulin Ratio 0.9 (0.8-1.8); Anion Gap 8 mmol/L (3-11); Aspartate Aminotrans (AST/SGOT 31 U/L (12-37); Bilirubin, Total 0.8 mg/dL (0.1-1.0); Blood Urea Nitrogen 22 mg/dL (8-24); CO2, Blood 20 mmol/L (21-32); Calcium, Blood 9.4 mg/dL (8.5-10.1); Chloride, Blood 115 mmol/L (98-108); Creatinine, Blood 1.51 mg/dL (0.40-1.00); Globulin, Blood 3.7 g/dL (2.2-4.0); Glucose, Blood 120 mg/dL (70-99); Potassium, Blood 5.4 mmol/L (3.5-5.5); Sodium, Blood 138 mmol/L (136-145); Total Protein, Blood 7.2 g/dL (6.4-8.2)
[2025-10-29 17:18] LABS: CHOL/HDL RATIO 2.7; Cholesterol 155 mg/dL (50-200); HDL Cholesterol 57 mg/dL (>39); LDL/HDL RATIO 1.4; Low Density Lipoprotein Chol 77 mg/dL (0-110); Triglycerides 105 mg/dL (30-160); Very Low Density Lipoprot Chol 21 mg/dL (6-32)
== END ==
LOC: LAB SHORT 11:23 → LAB 11:23
PROVIDERS: Nurse Practitioner Family
DX: Z00.00 Encounter for general adult medical examination without abnormal findings (principal); Z13.6 Encounter for screening for cardiovascular disorders; K74.60 Unspecified cirrhosis of liver
CPT/HCPCS: 80053; 80061; 85025